=== PATIENT | male | born 1975 | race African-American/Black ===

== ENCOUNTER 2019-04-25 04:46 | Emergency (ER) | payer OTHER ==
[~2019-04-25] VITALS: Ht 182.9 cm; Wt 102.1 kg
[2019-04-25 04:57] VITALS: BP 144/97
--- NOTE | 2019-04-25 04:59 | NUR ---
ED Nurse Note: PT AMBULATED TO ED FROM HOME C/O RIGHT EYE ITCHINESS AND REDNESS X 2300 YESTERDAY. PT STATES IRRITATION BEGAN WHILE IN THE SHOWER. PER PT, "MY WIFES FACIAL EXFOLIATE WAS ON ON THE WASH CLOTH AND I THINK IT GOT IN MY EYE IT FEELS LIKE SAND"
[2019-04-25] MEDS ORDERED: Fluorescein Strips ONE (05:10)
--- NOTE | 2019-04-25 05:13 | Emergency Room Report ---
History of Present Illness General Chief Complaint: Eye Problems Source: Patient Present Illness HPI Is a 44-year-old male with no past medical history. He presents with chief complaint of right eye irritation. This occurred about 6 hours ago. He was taken a shower and felt something in his eyes. Denies any fever chills but denies any drainage. Denies any discharge. Said that it felt mode. Denies any other complaint. No loss of vision Allergies: Coded Allergies: No Known Allergies (Unverified , 04/25/19) Patient History Past Medical History: see triage record, old chart reviewed Past Surgical History: none Pertinent Family History: none Social History: Denies: smoking Immunizations: other Reviewed Nursing Documentation: PMH: Agreed; PSxH: Agreed Nursing Documentation-PMH Past Medical History: No Stated History Review of Systems Eye: Reports: eye pain; Denies: blurred vision ENT: Denies: ear pain, nose congestion, throat swelling Respiratory: Denies: cough, shortness of breath Cardiovascular: Denies: chest pain, palpitations Gastrointestinal: Denies: abdominal pain, diarrhea, nausea, vomiting Musculoskeletal: Denies: back pain, joint pain Skin: Denies: rash Neurological: Denies: headache, numbness Endocrine: Denies: increased thirst, increased urine Hematologic/Lymphatic: Denies: easy bruising All Other Systems: negative except mentioned in HPI Physical Exam Vital Signs Date Time Temp Pulse Resp B/P (MAP) Pulse Ox O2 Delivery O2 Flow Rate FiO2 04/25/19 04:50 98.2 92 16 144/97 (113) 98 Room Air Vitals normal except for elevated blood pressure Sp02 EP Interpretation: reviewed, normal General Appearance: well appearing, no apparent distress, alert Head: normocephalic, atraumatic Eyes: right eye other - Conjunctiva are injected. Sclera injected.; bilateral eye PERRL, bilateral eye EOMI ENT: hearing grossly normal, normal pharynx Neck: full range of motion, supple, no meningismus Respiratory: chest non-tender, lungs clear, normal breath sounds Cardiovascular #1: regular rate, rhythm, no murmur Gastrointestinal: normal bowel sounds, non tender, no mass, no organomegaly, no bruit, non-distended Musculoskeletal: back normal, gait/station normal, normal range of motion Psychiatric: mood/affect normal Medical Decision Making Diagnostic Impression: Primary Impression: Corneal abrasion, right Qualified Codes: S05.01XA - Injury of conjunctiva and corneal abrasion without foreign body, right eye, initial encounter ER Course Presents with possible foreign body in his right eye. There is no foreign body with my exam. There is corneal abrasion and injection of the sclera. He is been rubbing it. No evidence of globe rupture. Negative Shantell sign. Last Vital Signs Date Time Temp Pulse Resp B/P (MAP) Pulse Ox O2 Delivery O2 Flow Rate FiO2 04/25/19 04:57 98.2 92 16 144/97 98 Room Air Status: improved Disposition: HOME, SELF-CARE Condition: Stable Scripts Polymyxin/Trimethoprim (Polytrim Eye Drops) 10 Ml Drops 2 DROP OPHTHALM THREE TIMES A DAY, #1 EA Instill in affected eye for 7 days Prov: David Tovar MD 04/25/19 Additional Instructions: Do not rub eye. Follow-up with your doctor in 2 to 3 days if not better. Return if symptoms worsen. David Tovar MD Apr 25, 2019 05:13
[2019-04-25] MEDS ORDERED: Fluorescein Strips RIGHT EYE ONE (05:15)
[2019-04-25] MEDS ORDERED: POLYTRIM OP SOL10 ML OPHTHALM (05:20)
[2019-04-25 05:23] VITALS: BP 137/94
--- NOTE | 2019-04-25 05:23 | NUR ---
ER DISCHARGE NOTE: Patient is cleared to be discharged per ERMD, pt is aox4, on room air, with stable vital signs. pt was given dc and prescription instructions, pt was able to verbalize understanding, pt id band removed. pt is able to ambulate with steady gait. pt took all belongings.
== END 2019-04-25 05:23 | disposition home or self-care (01) ==
LOC: EDBD 04:46 → EMR 05:10
DX: S05.01XA Injury of conjunctiva and corneal abrasion without foreign body, right eye, initial encounter (principal); X58.XXXA Exposure to other specified factors, initial encounter; Y92.9 Unspecified place or not applicable
CPT/HCPCS: 99283